=== PATIENT | female | born 1945 | race Caucasian/White ===

== ENCOUNTER → 2020-04-29 | Outpatient (CLI) | payer MEDICARE ==
--- NOTE | 2020-04-29 09:45 | KCIC ---
MRI Cervical Spine Without Contrast History:Cervicalgia, crepitus of cervical spine, right upper extremity pain for one month Technique: Multiplanar, multi sequential noncontrast MR imaging was performed of the cervical spine. Comparison: None Findings: There is some motion degradation, somewhat limits accurate characterization of neural foramina. Cervical cord caliber is within normal limits without defined or expansile signal change. Cervical vertebral body stature is overall maintained. There is minimal grade 1 anterior spondylolisthesis C3-4 and C4-5. There is no significant focal marrow edema. There is severe degenerative disc disease at C5-6 and C6-7 and to a somewhat lesser degree at C4-5, minimally at C3-4. There is trace superior C5 endplate edema likely reactive/degenerative in etiology. There is mild segmental reversal of the lordotic curvature centered near C5. 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 C2-C3: Spinal canal and neural foramina are adequate. C3-C4: Spinal canal and neural foramina are adequate. There is negligible disc osteophyte complex and protrusion C4-C5: There is minimal disc osteophyte complex and bulge. Central canal is adequate about 12 mm. There is mild left facet degenerative change. There is mild bilateral uncovertebral degenerative change. There is mild narrowing of the right neural foramen, left neural foramen not significantly narrowed. C5-C6: There is minimal disc osteophyte complex. Central canal is adequate about 12 mm. There is uncovertebral degenerative change bilaterally. There is mild facet degenerative change. Right neural foramen is minimally narrowed proximally. There is suspected overall moderate narrowing of the left neural foramen. C6-C7: There is minimal disc osteophyte complex. Central canal is adequate about 12 mm. There is mild left uncovertebral degenerative change. There is [id number] narrowing of the left neural foramen, right neural foramen overall adequate. C7-T1: There is very shallow posterior protrusion. Central canal is adequate about 13 mm. There is mild left uncovertebral degenerative change. Neural foramina are overall adequate. Impression: 1. There is no significant cervical spinal stenosis. 2. There is moderate narrowing of the left C5-6 and C6-7 neural foramina in part from uncovertebral degenerative change, minimal narrowing on the right at C4-5. 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 3. There is fairly severe degenerative disc disease at C5-6 and C6-7 and to lesser degree at C4-5, mild spondylosis at these levels. 4. There is very minimal grade 1 anterior spondylolisthesis C3-4 and C4-5, degree of multilevel cervical facet degenerative change. Electronically signed by: Arnol Randall MD (04/29/2020 9:42 AM) [facility]
== END ==
LOC: KCIC MRI 08:20
PROVIDERS: ATTEND Physician Assistant
DX: M47.813 Spondylosis without myelopathy or radiculopathy, cervicothoracic region (principal); M50.323 Other cervical disc degeneration at C6-C7 level; M48.02 Spinal stenosis, cervical region; M25.78 Osteophyte, vertebrae; M50.20 Other cervical disc displacement, unspecified cervical region
CPT/HCPCS: 72141